=== PATIENT | male | born 1955 | race Caucasian/White ===

== ENCOUNTER 2016-12-30 20:53 | Emergency (ER) | payer MEDICAID, OTHER ==
[~2016-12-30] VITALS: Ht 167.6 cm; Wt 81.0 kg
[~2016-12-30 20:53] MED LIST: ALBU18HF INHALATION; CAPT25TA3 PO; LOSA50TA6 PO; METF500T4 PO; PRAV10TA43 PO; PRED20TA PO
[2016-12-30 20:59] VITALS: Ht 167.6 cm; Wt 81.0 kg
--- NOTE | 2016-12-30 23:30 | RADRPT ---
PROCEDURE: Chest. CLINICAL INDICATION: Cough. TECHNIQUE: Single frontal view of the chest was obtained. COMPARISON: 03/02/2016. FINDINGS: The cardiac silhouette is within normal limits. The aortic arch is unremarkable. There is no focal consolidation, vascular congestion or pleural effusion. There is no pneumothorax. IMPRESSION: No evidence for active cardiopulmonary disease. .Dorian Carranza MD, MD Date Time Electronically viewed and signed by .Dorian Carranza MD, on 12/30/2016 23:30 .T/
[2016-12-30] MEDS ORDERED: ACET500C5 PO (23:34)
[2016-12-30] MEDS ORDERED: BENZ100C70 PO (23:34)
[2016-12-30] MEDS ORDERED: GUAI-637 PO (23:35)
[2016-12-31 00:02] VITALS: BP 190/97; PULSE 73; RESP 17
--- NOTE | 2016-12-31 00:28 | ERD ---
ER Documentation Chief Complaint Date/Time DATE: 12/31/16 TIME: 00:22 Chief Complaint cough and colds today HPI Patient is a 61-year-old male with past medical history of hypertension, diabetes, hyperlipidemia who presents to the emergency department with a cough and nasal congestion 1 day. Patient states his symptoms started earlier today. Patient reports a dry cough. Patient denies any wheezing or shortness of breath. Patient denies any chest pain, left upper extremity pain, diaphoresis or loss of consciousness. Patient does have some clear rhinorrhea. Patient denies any nausea, vomiting, abdominal pain, diarrhea. Patient does not admit to getting flu vaccination this year. He denies any headache, blurry vision, dizziness. No sick contacts. No recent travel. Patient does report taking his blood pressure medication daily. He states he only takes his medications in the mornings. ROS All systems reviewed and are negative except as per history of present illness. Medications Home Meds Active Scripts Guaifenesin* (Robitussin*) 100 Mg/5 Ml Syrup, 100 MG PO Q4H Y for COUGH, #1 BOT Prov:LUCHO GONZÁLES PA-C 12/30/16 Acetaminophen* (Tylophen*) 500 Mg Capsule, 1 CAP PO Q6H Y for PAIN AND OR ELEVATED TEMP, #20 CAP Prov:LUCHO GONZÁLES PA-C 12/30/16 Benzonatate* (Tessalon Perle*) 100 Mg Capsule, 100 MG PO Q8H Y for COUGH, #30 CAP Prov:LUCHO GONZÁLES-C 12/30/16 Albuterol Sulfate* (Ventolin HFA*) 18 Gm Hfa.aer.ad, 2 PUFF INHALATION Q4H, #1 INHALER Prov:MERCY JOSEPH 03/03/16 Prednisone* (Prednisone*) 20 Mg Tab, 40 MG PO DAILY for 4 Days, TAB Prov:MERCY JOSEPH 03/03/16 Reported Medications Metformin Hcl* (Metformin Hcl*) 500 Mg Tablet, 500 MG PO WITH BREAKFAST DINNE, # 60 TAB MEDS TAKE IN [place] (IMALET 500MG/2.5MG) 03/02/16 Losartan Potassium* (Losartan Potassium*) 50 Mg Tablet, 50 MG PO DAILY, TAB MEDS TAKE IN [place] (ALDERAT) 6/13/16 Captopril* (Captopril*) 25 Mg Tablet, 25 MG PO DAILY, #60 TAB MEDS TAKE IN [place] (TENSIL) 03/02/16 Pravastatin Sodium* (Pravastatin Sodium*) 10 Mg Tablet, 10 MG PO HS, TAB MEDS TAKE IN [place] (LORETSIN) 03/02/16 Allergies Allergies: Coded Allergies: No Known Drug Allergies (Verified Allergy, Mild, 03/02/16) PMhx/Soc Medical and Surgical Hx: pt denies Surgical Hx History of Surgery: No Anesthesia Reaction: No Hx Neurological Disorder: No Hx Respiratory Disorders: No Hx Cardiac Disorders: Yes (htn, DYSLIPIDEMIA) Hx Psychiatric Problems: No Hx Miscellaneous Medical Probl: Yes (DM) Hx Alcohol Use: No Hx Substance Use: No Hx Tobacco Use: No Smoking Status: Never smoker FmHx Family History: diabetes Physical Exam Vitals Vital Signs Date Time Temp Pulse Resp B/P Pulse Ox O2 Delivery O2 Flow Rate FiO2 12/31/16 00:02 73 17 190/97 100 Room Air 12/30/16 20:59 98.7 88 20 188/90 100 Physical Exam GENERAL: Well-developed, well-nourished male. Appears in no acute distress. In full sentences HEAD: Normocephalic, atraumatic. No deformities or ecchymosis. EYE: Pupils equal, round, and reactive to light. EOMs intact. No conjunctival erythema. No eye discharge. ENT: External ear without any masses or tenderness. Auditory canals clear bilaterally. TM visualized bilaterally, non-erythematous, non-bulging. Nasal mucosa pink with no discharge. Oropharynx is pink without any tonsillar erythema or exudates. No uvula deviation. No kissing tonsils. Nontender to palpation of bilateral mastoid processes. NECK: Supple. No meningismus. Normal ROM of the neck. LUNG: Clear to auscultation bilaterally. No rhonchi, wheezing, rales or coarse breath sounds. HEART: Regular rate and rhythm. No murmurs, rubs or gallops. BACK: No midline tenderness. EXTREMITES: Equal pulses bilaterally. No peripheral clubbing, cyanosis or edema. No unilateral leg swelling. NEUROLOGIC: Alert and oriented to person, place and time. Moving all four extremities. 5/5 strength in all extremities. Normal speech. Steady gait. SKIN: Normal color. Warm and dry. No rashes or lesions. Procedures/MDM ED COURSE: The patient was stable throughout ED course. I kept the patient and/or family informed of laboratory and diagnostic imaging results throughout the ED course. EKG: Read by Dr. Sue, attending physician. EKG shows normal sinus rhythm at a rate of 72 bpm. No arrhythmias, acute ST elevations or T wave changes were noted. DIAGNOSTIC IMAGING: Read by radiologist. DIAGNOSTIC IMAGING REPORT Patient: TIARA RIANES : 1955 Age: 61 Sex: M MR #: [id number] DOS: 12/30/16 211 Ordering MD: LUCHO GONZÁLES PA-C Location: [facility] Room/Bed: PROCEDURE: Chest. CLINICAL INDICATION: Cough. TECHNIQUE: Single frontal view of the chest was obtained. COMPARISON: 03/02/2016. FINDINGS: The cardiac silhouette is within normal limits. The aortic arch is unremarkable. There is no focal consolidation, vascular congestion or pleural effusion. There is no pneumothorax. IMPRESSION: No evidence for active cardiopulmonary disease. .Dorian Carranza MD, MD Date Time Electronically viewed and signed by .Dorian Carranza MD, on 12/30/2016 23:30 .T/ CC: LUCHO GONZÁLES PA-C MEDICAL DECISION MAKING: This is a 5-year-old male with a past medical history of hypertension, diabetes , hyperlipidemia who presents to the emergency department with a dry cough and clear rhinorrhea 1 day. Vital signs were reviewed. Patient was afebrile. Patient was not hypoxic. ENT exam was normal. Lung exam was normal. Chest x- ray was unremarkable. EKG was unremarkable. Given these findings, the patient' s presentation is most consistent with viral URI. I have a much lower clinical concern for bacterial infections including pneumonia, meningitis, sinusitis, otitis externa, acute otitis media, strep pharyngitis, epiglottitis or peritonsillar abscess. PRESCRIPTIONS: Tylenol, Robitussin, Tessalon Perles DISCHARGE: At this time, patient is stable for discharge and outpatient management. Supportive therapies such as OTC throat lozenges, salt water gurgles, popsicles and jello discussed. I have instructed the patient to follow-up with his/her primary care physician in 1-2 days. I have instructed the patient to promptly return to the ER for any new or worsening symptoms including increased pain, swelling, fever, nausea, vomiting, weakness or difficulty breathing. The patient and/or family expressed understanding of and agreement with this plan. All questions were answered. Home care instructions were provided. . Patient's blood pressure was elevated (>120/80) but appears stable without evidence of hypertensive emergency, hypertensive urgency or end-organ failure. I had discussion with the patient about the risks of hypertension. I have advised the patient to follow up with his/her primary care physician for outpatient monitoring and treatment for hypertension in 2-3 days. I have instructed the patient to return to the ER for any new or worsening symptoms including chest pain, shortness of breath, headache, blurred vision, confusion, nausea, vomiting or LOC. Departure Diagnosis: Primary Impression: Viral URI Condition: Stable Patient Instructions: Uri, Viral, No Abx (Adult) Additional Instructions: Call your primary care doctor TOMORROW for an appointment during the next 1-2 days.See the doctor sooner or return here if your condition worsens before your appointment time. LUCHO GONZÁLES PA-C Dec 31, 2016 00:28
== END 2016-12-31 00:03 | disposition home or self-care (01) ==
LOC: FTE 20:53
DX: J06.9 Acute upper respiratory infection, unspecified (principal); E11.9 Type 2 diabetes mellitus without complications; I10 Essential (primary) hypertension; Z79.84 Long term (current) use of oral hypoglycemic drugs
CPT/HCPCS: 71010; 93005

== ENCOUNTER 2019-05-01 10:45 | Emergency (ER) | payer OTHER ==
[~2019-05-01] VITALS: Ht 175.3 cm; Wt 81.6 kg
[~2019-05-01 10:45] MED LIST changes: +ACET500C5 PO; +AMLO-147 PO; +ASPI325T32 PO; +BENA40TA56 PO; +BENZ-6 PO; +BISA5TAB6 PO; +GLIP10TA14 PO; +GUAI-637 PO; +IBUP-1542 PO; +LOSA50TA14 PO; -LOSA50TA6 PO; +METF100010 PO; +METF500T24 PO; -METF500T4 PO; +PRAV40TA76 PO; +TRAZ-149 PO
[2019-05-01 10:49] VITALS: Ht 175.3 cm; Wt 81.6 kg
--- NOTE | 2019-05-01 11:35 | ERD ---
ER Documentation Chief Complaint Chief Complaint rt eye transient vision HPI The patient is a 63-year-old male, presenting to the ER with multiple complaints. He complains of transient loss of right eye vision for about a minute at 9:30 AM while he was at work. He complains of minimal left-sided chest pain with left arm numbness that began yesterday, worse with movement or palpation, denies similar symptoms previously. He complains of neck pain for 1 day, worse with movement. He denies syncope, near syncope, chest pain with vomiting/radiation/exertion/diaphoresis, denies dyspnea, abdominal pain, vomiting, dysuria, diarrhea. He does not smoke nor drink Past medical history: Diabetes mellitus, hypertension, dyslipidemia Past surgical history: None ROS All systems reviewed and are negative except as per history of present illness. Medications Home Meds Active Scripts Ibuprofen* (Motrin*) 600 Mg Tab, 600 MG PO Q6H PRN for PAIN, #20 TAB Prov:MABEL RO MD 05/01/19 Reported Medications Metformin Hcl* (Metformin Hcl*) 1,000 Mg Tablet, 1000 MG PO WITH BREAKFAST DINNE, #60 TAB 05/01/19 Pravastatin Sodium* (Pravastatin Sodium*) 40 Mg Tablet, 40 MG PO HS, TAB 05/01/19 Amlodipine Besylate* (Amlodipine Besylate*) 10 Mg Tablet, 10 MG PO DAILY, #30 TAB 05/01/19 Bisacodyl* (Bisacodyl*) 5 Mg Tablet.dr, 5 MG PO BID, TAB 05/01/19 Glipizide* (Glipizide*) 10 Mg Tablet, 10 MG PO AC BREAKFAST DINNER, TAB 05/01/19 Trazodone Hcl* (Desyrel*) 50 Mg Tab, 50 MG PO QHS, #30 TAB 05/01/19 Benazepril Hcl* (Benazepril Hcl*) 40 Mg Tablet, 40 MG PO DAILY, #30 TAB 05/01/19 Aspirin* (Aspirin* EC) 325 Mg Tab, 325 MG PO DAILY, TAB 05/01/19 Discontinued Reported Medications Metformin Hcl* (Metformin Hcl*) 500 Mg Tablet, 500 MG PO WITH BREAKFAST DINNE, #60 TAB MEDS TAKE IN [place] (IMALET 500MG/2.5MG) 03/02/16 Losartan Potassium* (Losartan Potassium*) 50 Mg Tablet, 50 MG PO DAILY, TAB MEDS TAKE IN [place] (ALDERAT) 03/02/16 Captopril* (Captopril*) 25 Mg Tablet, 25 MG PO DAILY, #60 TAB MEDS TAKE IN [place] (TENSIL) 03/02/16 Pravastatin Sodium* (Pravastatin Sodium*) 10 Mg Tablet, 10 MG PO HS, TAB MEDS TAKE IN [place] (LORETSIN) 03/02/16 Discontinued Scripts Guaifenesin* (Robitussin*) 100 Mg/5 Ml Syrup, 100 MG PO Q4H PRN for COUGH, #1 BOT Prov:LUCHO GONZÁLES-C 12/30/16 Acetaminophen* (Tylophen*) 500 Mg Capsule, 1 CAP PO Q6H PRN for PAIN AND OR ELEVATED TEMP, #20 CAP Prov:LUCOH GONZÁLES-C 12/30/16 Benzonatate* (Tessalon Perle*) 100 Mg Capsule, 100 MG PO Q8H PRN for COUGH, #30 CAP Prov:LUCHO GONZÁLES-C 12/30/16 Albuterol Sulfate* (Ventolin HFA*) 18 Gm Hfa.aer.ad, 2 PUFF INHALATION Q4H, #1 INHALER Prov:MERCY JOSEPH 03/03/16 Prednisone* (Prednisone*) 20 Mg Tab, 40 MG PO DAILY for 4 Days, TAB Prov:MRECY JOSEPH 03/03/16 Allergies Allergies: Coded Allergies: No Known Drug Allergies (Verified Allergy, Mild, 05/01/19) PMhx/Soc History of Surgery: No Anesthesia Reaction: No Hx Neurological Disorder: No Hx Respiratory Disorders: No Hx Cardiac Disorders: Yes (htn, DYSLIPIDEMIA) Hx Psychiatric Problems: No Hx Miscellaneous Medical Probl: Yes (DM) Hx Alcohol Use: No Hx Substance Use: No Hx Tobacco Use: No Smoking Status: Former smoker Physical Exam Vitals Vital Signs Date Temp Pulse Resp B/P (MAP) Pulse Ox O2 O2 Flow FiO2 Time Delivery Rate 05/01/19 98.1 65 16 131/81 100 Room Air 16:03 (98) 05/01/19 98.1 86 18 196/87 99 10:49 (123) Physical Exam Const: No acute distress. Head: Atraumatic. Eyes: Normal Conjunctiva. ENT: Normal External Ears, Nose and Mouth. Neck: Full range of motion. No meningismus. Resp: Clear to auscultation bilaterally. Cardio: Regular rate and rhythm.Lt chest wall tender on palpation, no crepitus Abd: Soft, non distended, normal bowel sounds, non tender. Skin: No petechiae or rashes. Back: No midline or flank tenderness. Ext: No cyanosis, or edema. Neur: Awake and alert. No focal deficit Psych: Normal Mood and Affect. Result Diagram: 05/01/19 1140 05/01/19 1140 Results 24 hrs Laboratory Tests Test 05/01/19 11:40 05/01/19 14:23 White Blood Count 5.8 10^3/ul Red Blood Count 4.28 10^6/ul Hemoglobin 12.5 g/dl Hematocrit 37.4 % Mean Corpuscular Volume 87.4 fl Mean Corpuscular Hemoglobin 29.2 pg Mean Corpuscular Hemoglobin Concent 33.4 g/dl Red Cell Distribution Width 13.2 % Platelet Count 256 10^3/UL Mean Platelet Volume 8.6 fl Immature Granulocytes % 0.500 % Neutrophils % 59.0 % Lymphocytes % 28.7 % Monocytes % 8.1 % Eosinophils % 2.8 % Basophils % 0.9 % Nucleated Red Blood Cells % 0.0 /100WBC Immature Granulocytes # 0.030 10^3/ul Neutrophils # 3.4 10^3/ul Lymphocytes # 1.7 10^3/ul Monocytes # 0.5 10^3/ul Eosinophils # 0.2 10^3/ul Basophils # 0.1 10^3/ul Nucleated Red Blood Cells # 0.0 10^3/ul Sodium Level 137 mmol/L Potassium Level 4.5 mmol/L Chloride Level 102 mmol/L Carbon Dioxide Level 24 mmol/L Anion Gap 11 Blood Urea Nitrogen 18 mg/dl Creatinine 1.02 mg/dl Est Glomerular Filtrat Rate mL/min > 60 mL/min Glucose Level 177 mg/dl Calcium Level 9.8 mg/dl Troponin I < 0.012 ng/ml < 0.012 ng/ml Current Medications Medications Dose Sig/[place] Start Time Status Last (Trade) Ordered Route PRN Stop Time Admin Dose Reason Admin Ketorolac 30 mg ONCE STAT 05/01/19 DC 05/01/19 Tromethamine IV 13:40 13:50 (Toradol) 05/01/19 13:48 Procedures/MDM EKG: Read by emergency physician Rate/Rhythm: Normal Sinus Rhythm 78 beats/min QRS, ST, T-waves: No ST elevation, nonspecific T abnormality Impression: Abnormal EKG [place] [address] Radiology Main Line: [phone] DIAGNOSTIC IMAGING REPORT Patient: TIARA RAINES : 1955 Age: 63 Sex: M [id number] DOS: 05/01/19 1136 Ordering MD: MABEL RO MD Location: E/R Room/Bed: PROCEDURE: CT Brain without contrast. CLINICAL INDICATION: Headache. TECHNIQUE: A CT of the brain without contrast was performed utilizing axial sections from the skull base through the vertex. One or more the following does reduction techniques were utilized: Automated exposure control, adjustment of the mA/ or kV according to patient's size, or use of iterative reconstruction technique. Total exam CTDIvol is 37 MGy and DLP is 555 mGy-cm. DICOM images are available. COMPARISON: None available. FINDINGS: The ventricles and sulci are mildly prominent indicative of volume loss. There is no intracranial hemorrhage, mass effect or midline shift. No abnormal intra- axial or extra-axial fluid collections are seen. The [place]/white matter differen tiation is well preserved. There are mild scattered foci of hypoattenuation in the periventricular, deep, and subcortical white matter, which are nonspecific in etiology but likely reflect chronic small vessel ischemic changes. There are mild intracranial vascular calcifications consistent with atherosclerosis. The visualized paranasal sinuses are essentially clear. IMPRESSION: 1. No acute intracranial hemorrhage, transcortical infarction or mass effect. 2. Mild intracranial atherosclerosis and chronic small vessel ischemic changes. 3. Mild generalized cerebral volume loss. RPTAT: HH .Adalberto Hernandez MD, Date Time Electronically viewed and signed by .Adalberto Hernandez MD, MD on 05/01/2019 12:20 .N/ CC: MABEL RO MD [id number] [place] [address] Radiology Main Line: [phone] DIAGNOSTIC IMAGING REPORT Patient: TIARA RAINES : 1955 Age: 63 Sex: M MR #: [id number] DOS: 05/01/19 1136 Ordering MD: MABEL RO MD Location: E/R Room/Bed: PROCEDURE: XR chest. CLINICAL INDICATION: Chest pain TECHNIQUE: Portable AP view of the chest was obtained. COMPARISON: 12/30/2016 FINDINGS: Cardiomediastinal silhouette is normal. There is no pneumothorax or pleural effusion. There is no focal pulmonic consolidation. IMPRESSION: 1. No acute pulmonary abnormality. RPTAT:AAEE Physician Jorge A Date Time Electronically viewed and signed by Adalberto Matamoros Physician on 05/01/2019 12:10 RM/ CC: MABEL RO MD [id number] EKG: at 10:51 AM Read by emergency physician Rate/Rhythm: Normal Sinus Rhythm 78 beats/min QRS, ST, T-waves: No ST elevation, no T inversion Impression: Normal EKG EKG: at 12:27 PM Read by emergency physician Rate/Rhythm: Normal Sinus Rhythm 70 beats/min QRS, ST, T-waves: No ST elevation, no T inversion Impression: Normal EKG MEDICAL MAKING DECISION: The patient is a 63-year-old female, presenting with transient loss of right eye vision/ chest pain of unclear etiology. He was treated with Toradol 10 mg IV for pain with good response, is above outpatient follow-up The differential diagnoses considered include but are not limited to acute coronary syndrome, acute myocardial infarction, pericarditis, pulmonary embolism, aortic dissection, pneumonia, pleural effusion, pneumothorax, GERD, chest wall pain. The patient presents with chest pain and I considered pulmonary embolism, aortic dissection, pneumothorax among other diagnoses. Evaluation for acute coronary syndrome was performed. The HEART score (www.mdcalc.com) was utilized for risk stratification and found to be <= 3. Repeat EKG and troponin @ 3 hours were unchanged. Based on this evaluation the patients risk of major adverse cardiac events is <1%. Shared decision making occurred with patient and the decision has been made to discharge the patient for outpatient evaluation and functional study within 72 hours. Departure Diagnosis: Primary Impression: Vision disturbance Additional Impressions: Chest pain Anemia Condition: Good Comments I discussed the findings with the patient. I advised the patient to follow-up with the kraft digester operator and the dynamiter in about 1-2 days, sooner if needed and return if any concern. Disclaimer: Inadvertent spelling and grammatical errors are likely due to EHR/dictation software use and do not reflect on the overall quality of patient care. Also, please note that the electronic time recorded on this note does not necessarily reflect the actual time of the patient encounter. MABEL RO MD May 01, 2019 11:35
[2019-05-01] MEDS ORDERED: KETOROLAC 30 MG INJ IV STA (13:40)
[2019-05-01 16:03] VITALS: BP 131/81; PULSE 65; RESP 16
== END 2019-05-01 16:45 | disposition home or self-care (01) ==
LOC: E/R 10:45
DX: H53.9 Unspecified visual disturbance (principal); I10 Essential (primary) hypertension; E11.9 Type 2 diabetes mellitus without complications; D64.9 Anemia, unspecified; R20.0 Anesthesia of skin; Z79.82 Long term (current) use of aspirin; Z79.84 Long term (current) use of oral hypoglycemic drugs; Z87.891 Personal history of nicotine dependence
CPT/HCPCS: 36415; 70450; 71045; 80048; 84484; 85025; 93005; 96374; J1885; Z7502